=== PATIENT | female | born 1985 | race Caucasian/White ===

== ENCOUNTER 2023-03-11 18:44 | Emergency (ER) | payer BC ==
[~2023-03-11] VITALS: Ht 177.8 cm; Wt 101.2 kg
[2023-03-11 18:45] VITALS: TEMP 98.1
[2023-03-11 19:42] LABS: BASO # 0.1 10^3/uL (0.0-0.2); BASO % 0.8 % (0.0-1.0); EOS # 0.7 10^3/uL (0.0-0.5); EOS % 5.6 % (0.0-3.0); HEMATOCRIT 38.8 % (36.0-47.0); HEMOGLOBIN 12.7 g/dl (12.0-15.5); LYMPH # 2.6 10^3/uL (1.5-5.0); LYMPH % 20.7 % (24.0-44.0); MEAN CORPUSCULAR HEMOGLOBIN 29.6 pg (27.0-33.0); MEAN CORPUSCULAR HGB CONC 32.7 g/dl (32.0-36.5); MEAN CORPUSCULAR VOLUME 90.4 fl (80.0-96.0); MONO % 7.6 % (2.0-8.0); NEUTROPHILS # 8.1 10^3/uL (1.5-8.5); PLATELET COUNT, AUTOMATED 368 10^3/uL (150-450); RED BLOOD COUNT 4.29 10^6/uL (4.00-5.40); WHITE BLOOD COUNT 12.5 10^3/uL (4.0-10.0)
[2023-03-11] MEDS ORDERED: KEPP10002 PO (19:59)
[2023-03-11 20:09] LABS: INR 0.83; PARTIAL THROMBOPLASTIN TIME 25.2 SECONDS (24.8-34.2); PROTHROMBIN TIME 11.6 SECONDS (12.5-14.5)
[2023-03-11 20:17] LABS: CK-MB VALUE MASS < 1.0 NG/ML (<3.6); LIPASE 21 U/L (12-53)
[2023-03-11 20:19] LABS: ALBUMIN 3.7 G/DL (3.2-5.2); ALKALINE PHOSPHATASE 92 U/L (46-116); ALT/SGPT 23 U/L (7.0-40); AST/SGOT 17 U/L (<34); BILIRUBIN,DIRECT < 0.1 MG/DL (<0.4); BILIRUBIN,TOTAL 0.2 MG/DL (0.3-1.2); BLOOD UREA NITROGEN 12 MG/DL (9-23); CALCIUM LEVEL 8.7 MG/DL (8.5-10.1); CARBON DIOXIDE LEVEL 26 MMOL/L (20-31); CHLORIDE LEVEL 106 MMOL/L (98-107); CREATININE FOR GFR 0.71 MG/DL (0.55-1.30); GLOMERULAR FILTRATION RATE > 60.0 (>60); GLUCOSE, FASTING 91 MG/DL (60-100); POTASSIUM SERUM 4.5 MMOL/L (3.5-5.1); SODIUM LEVEL 137 MMOL/L (136-145); TOTAL PROTEIN 6.9 G/DL (5.7-8.2)
[2023-03-11 20:23] LABS: HCG, SERUM QUALITATIVE NEGATIVE (NEGATIVE)
[2023-03-11 20:25] LABS: CPK CREATINE PHOSPHOKINASE 68 U/L (34-145); MB/CK RELATIVE INDEX 1.47 (< OR =4)
[2023-03-11] MEDS ORDERED: KETOROLAC 30 MG/ML 1ML VIAL IV ONE (20:25)
[2023-03-11 21:05] LABS: CK-MB VALUE MASS < 1.0 NG/ML (<3.6)
[2023-03-11 21:07] LABS: CPK CREATINE PHOSPHOKINASE 60 U/L (34-145); MB/CK RELATIVE INDEX 1.66 (< OR =4)
[2023-03-11 22:45] VITALS: BP 152/80
[2023-03-11 22:46] VITALS: O2SAT 99
== END 2023-03-11 22:55 | disposition home or self-care (01) ==
LOC: M ED 18:44
DX: K80.00 Calculus of gallbladder with acute cholecystitis without obstruction (principal); G43.909 Migraine, unspecified, not intractable, without status migrainosus; Z88.0 Allergy status to penicillin; Z88.2 Allergy status to sulfonamides; Z79.899 Other long term (current) drug therapy
CPT/HCPCS: 71046; 76705; 80048; 80076; 82550; 82553; 83690; 84484; 84703; 85025; 85610; 85730; 93005; 93041; 94760; 96374; 99285; J1885